=== PATIENT | male | born 1980 | race African-American/Black ===

== ENCOUNTER 2016-10-30 21:17 | Emergency (ER) | payer SELFPAY ==
--- NOTE | 2016-11-03 00:57 | ER ---
ADMIT: 10/30/2016 RM/LOC: ER [facility] MR#: [id number] 26[address] [facility] [address] [place] [id number] KEVIN AZUL [facility] [address] Emergency Room Report SEX: M AGE: 36 : 1980 DATE: 10/30/2016 CHIEF COMPLAINT: Medical clearance. HISTORY OF PRESENT ILLNESS: The patient is a 36-year-old male in police custody for DUI. The patient refuses to answer any questions. PAST MEDICAL HISTORY: Review of old records reveal chronic alcoholism, otherwise negative. FAMILY HISTORY: Unremarkable. SOCIAL HISTORY: Unremarkable. REVIEW OF SYSTEMS: Unreliable due to intoxicated state. PHYSICAL EXAMINATION: VITAL SIGNS: Temp 98, pulse 71, respirations 16, BP 129/89, SaO2 of 98%. HEENT: No evidence of trauma. CHEST: Clear breath sounds, equal. NEURO: Intoxicated mental status and clouded sensorium and slurred speech. MEDICAL DECISION MAKING: Released in police custody. DIAGNOSIS: Alcoholic intoxication. RECOMMENDATION: Cleared for incarceration. Darshan Robles MD/ yuel JOB #: [id number] CC: Darshan Robles MD, Attending Physician Lon Aguirre MD, Family Physician Lon Aguirre MD
== END 2016-10-30 21:40 ==
LOC: ER 21:17
DX: F10.129 Alcohol abuse with intoxication, unspecified (principal)

== ENCOUNTER 2016-11-03 15:53 | Emergency (ER) | payer SELFPAY ==
--- NOTE | 2016-11-10 17:50 | ER ---
ADMIT: 11/03/2016 RM/LOC: ER [facility] MR#: [id number] [address] [address] KEVIN AZUL [address] [address] Emergency Room Report SEX: M AGE: 36 : 1980 DATE: 11/03/2016 ADDENDUM: This patient comes into the ER brought in by police because he is intoxicated. He is arrested for trespassing because he is intoxicated. They brought him in for med clearance. On physical exam, he is alert. He denies any pain, smells strongly of alcohol, had normal vital signs. He was discharged to the snf in police custody. DENAE España / Tito Sen MD / gera JOB #: [id number] CC: Tito Sen MD, Attending Physician Benitez Quijano MD, Family Physician
== END 2016-11-03 16:10 | disposition home or self-care (01) ==
LOC: ER 15:53
DX: F10.129 Alcohol abuse with intoxication, unspecified (principal); F17.210 Nicotine dependence, cigarettes, uncomplicated

== ENCOUNTER 2016-12-01 23:38 | Emergency (ER) | payer SELFPAY ==
--- NOTE | 2016-12-02 02:12 | ER ---
ADMIT: 12/01/2016 RM/LOC: ER [facility] MR#: [id number] [address] [address] KEVIN AZUL [place] [address] Emergency Room Report SEX: M AGE: 36 : 1980 DATE: 12/01/2016 HISTORY OF PRESENT ILLNESS: The patient is a 36-year-old male with past medical history of allegedly chronic heavy alcohol abuse, was brought here by Law Enforcement because he was found outside at [facility] and allegedly was intoxicated. The patient and law enforcement denied any fall, trauma, or altercation. The patient denies any pain or discomfort. The patient admits to have taken a few beers. Per Law Enforcement, the Breathalyzer was in the range of 300. PHYSICAL EXAMINATION: GENERAL: In the ER, the patient was awake with open eyes, vitals are normal, in no obvious distress or pain. There are no obvious signs of trauma. HEAD AND NECK: Normal. CHEST: Clear. Bilateral breath sounds with normal cardiac sounds. ABDOMEN: Soft abdomen. EXTREMITIES: Nontender. Normal range of motion. NEUROLOGIC: The patient is alert and oriented to person, place, and time. The rest of the physical exam is noncontributory. DISPOSITION: The patient was medically cleared to snf, to be followed up by snf physician with the resolution of the symptoms. Elfego Sky MD/ gera JOB #: [id number] CC: Elfego Sky MD, Attending Physician Nitish Doyle MD, Family Physician
== END 2016-12-02 00:13 ==
LOC: ER 23:38
DX: Z00.00 Encounter for general adult medical examination without abnormal findings (principal); F10.129 Alcohol abuse with intoxication, unspecified; F17.210 Nicotine dependence, cigarettes, uncomplicated